=== PATIENT | female | born 2000 | race Caucasian/White ===

== ENCOUNTER 2019-08-13 17:33 | Outpatient (REF) | payer OTHER, SELFPAY ==
[2019-08-17 15:46] LABS: Chlamydia Result Negative (Negative); GC Result Negative (Negative); Specimen Description VAGINAL
== END 2019-08-13 17:53 ==
LOC: NCHCN 17:33
PROVIDERS: PCP Internal Medicine; Visit Provider Nurse Practitioner Family
DX: R10.2 Pelvic and perineal pain (principal); Z11.3 Encounter for screening for infections with a predominantly sexual mode of transmission
CPT/HCPCS: 87491; 87591

== ENCOUNTER 2019-08-14 21:01 | Outpatient (REF) | payer OTHER, SELFPAY ==
[2019-08-14 21:26] LABS: Bilirubin Negative (Negative); Blood Small (Negative); Clarity Clear (Clear); Glucose Negative (Negative); Ketones Trace mg/dL (Negative); Leukocyte Esterase Negative (Negative); Nitrite Negative (Negative); Specific Gravity >= 1.030 (1.005-1.025); Urobilinogen 0.2 EU/dL (Up TO 0.2)
[2019-08-14 21:37] LABS: Bacteria Moderate HPF (Negative); C & S Indicated? No/Sq. Contamination; Casts Negative LPF (Negative); Crystals Negative HPF (Negative); Epithelial Cells Many HPF (Negative); Mucus Negative (Negative); RBC Negative (0-2)
== END 2019-08-14 21:21 ==
LOC: NCHCN 21:01
PROVIDERS: PCP Internal Medicine; Visit Provider Nurse Practitioner Family
DX: R10.2 Pelvic and perineal pain (principal)
CPT/HCPCS: 81003; 81015